=== PATIENT | male | born 1950 | race Caucasian/White ===

== ENCOUNTER 2022-09-26 07:46 | Day surgery (SDC) | payer MEDICARE, BC ==
[2022-09-24 10:58] LABS: BASOPHILS % (AUTO) 0.4 % (0-1); EOSINOPHILS # (AUTO) 0.2 X10'3 (0-0.9); EOSINOPHILS % (AUTO) 3.1 % (0-6); HEMATOCRIT 35.5 % (42.0-52.0); HEMOGLOBIN 12.1 g/dl (14.0-17.9); LYMPHOCYTES # (AUTO) 1.3 X10'3 (1.1-4.8); LYMPHOCYTES % (AUTO) 23.4 % (21-51); MEAN CORPUSCULAR HEMOGLOBIN 32.2 PG (27.0-31.0); MEAN CORPUSCULAR HGB CONC 34.1 g/dL (33.0-36.5); MEAN CORPUSCULAR VOLUME 94.4 FL (78-98); MEAN PLATELET VOLUME 7.2 FL (7.4-10.4); MONOCYTES # (AUTO) 0.4 X10'3 (0-0.9); NEUTROPHILS # (AUTO) 3.5 X10'3 (1.8-7.7); NEUTROPHILS % (AUTO) 65.1 % (42-75); PLATELET COUNT 167 X10'3 (140-440); RED BLOOD COUNT 3.76 X10'6 (4.70-6.10); RED CELL DISTRIBUTION WIDTH 17.1 % (11.5-14.5); WHITE BLOOD COUNT 5.4 X10'3 (4.5-11.0)
[2022-09-24 11:09] LABS: APTT 27 SECONDS (22-32)
[2022-09-24 11:23] LABS: CHLORIDE 100 MMOL/L (99-107)
[2022-09-24 11:39] LABS: POTASSIUM 3.4 MMOL/L (3.5-5.1); SODIUM 138 MMOL/L (135-145)
[2022-09-24 11:42] LABS: ALANINE AMINOTRANSFERASE 32 U/L (12-78); ALBUMIN 3.7 G/DL (3.4-5.0); ALKALINE PHOSPHATASE 46 IU/L (46-116); ANION GAP 8 (8-16); ASPARTATE AMINO TRANSFERASE 24 U/L (10-37); BILIRUBIN,TOTAL 0.4 MG/DL (0.1-1.0); BLOOD UREA NITROGEN 12 MG/DL (7-18); BUN/CREATININE RATIO 13.2 (5.4-32.0); CALCIUM 9.1 MG/DL (8.5-10.1); CREATININE 0.91 MG/DL (0.60-1.10); GLUCOSE 229 MG/DL (70-104); TOTAL CARBON DIOXIDE 30.4 MMOL/L (24-32); TOTAL PROTEIN 7.3 G/DL (6.4-8.2); eGFR 82 ML/MIN
[~2022-09-26] VITALS: Ht 188 cm; Wt 123.3 kg
[2022-09-26] VITALS (12 sets, daily range): BP systolic 104–159; BP diastolic 58–83
[~2022-09-26 07:46] MED LIST: ASPI-529 PO; CARV-50 PO; CETI10CA11 PO; HYDR12.522 PO; LOSA25TA96 PO; MULT-1141 PO; NOR5T PO; OMEG-5 PO; VITC500T PO
[2022-09-26] MEDS ORDERED: diphenhydrAMINE 25mg capsule PO PRN (09:00)
[2022-09-26] MEDS ORDERED: nitroGLYCERIN 0.4mg SUBLingual tab SL PRN ×2 (09:00→12:40)
[2022-09-26] MEDS ORDERED: normal saline 1,000 ML IV SCH (09:00)
[2022-09-26] MEDS ORDERED: LORazepam 0.5 MG tablet PO PRN (09:00)
[2022-09-26] MEDS ORDERED: HYDR-4069 PO (09:23)
[2022-09-26] MEDS ORDERED: GLIM1TAB6 PO (09:23)
[2022-09-26] MEDS ORDERED: METF-1203 PO (09:23)
[2022-09-26] MEDS ORDERED: CARV25TA2 PO (09:23)
[2022-09-26] MEDS ORDERED: AMLO10TA13 PO (09:23)
[2022-09-26] MEDS ORDERED: FLO0.4C (09:23)
[2022-09-26] MEDS ORDERED: HYDR25TA4 PO (09:23)
[2022-09-26] MEDS ORDERED: ATOR10TA70 PO (09:23)
[2022-09-26] MEDS ORDERED: APIX2.5T PO (09:24)
[2022-09-26] MEDS ORDERED: MAGN500C4 PO (09:28)
[2022-09-26 09:59] LABS: ALANINE AMINOTRANSFERASE 38 U/L (12-78); ALBUMIN 4.3 G/DL (3.4-5.0); ALKALINE PHOSPHATASE 63 IU/L (46-116); ANION GAP 14 (8-16); ASPARTATE AMINO TRANSFERASE 27 U/L (10-37); BILIRUBIN,TOTAL 0.5 MG/DL (0.1-1.0); BLOOD UREA NITROGEN 12 MG/DL (7-18); BUN/CREATININE RATIO 13.5 (5.4-32.0); CALCIUM 9.1 MG/DL (8.5-10.1); CHLORIDE 98 MMOL/L (99-107); CREATININE 0.89 MG/DL (0.60-1.10); GLUCOSE 191 MG/DL (70-104); POTASSIUM 3.5 MMOL/L (3.5-5.1); SODIUM 138 MMOL/L (135-145); TOTAL CARBON DIOXIDE 25.7 MMOL/L (24-32); TOTAL PROTEIN 8.7 G/DL (6.4-8.2); eGFR 85 ML/MIN
[2022-09-26] MEDS ORDERED: insulin Lispro (HumaLOG) vial - multi-dose SQ SCH (10:05)
[2022-09-26] MEDS ORDERED: LIDOcaine 1% 30ml preserv. free vial ONE (10:41)
[2022-09-26] MEDS ORDERED: iohexol 350MG/ML 100ml bottle IV ONE ×2 (10:41→11:46)
[2022-09-26] MEDS ORDERED: fentaNYL/PF 50MCG/1 ML 2ML syringe ONE (10:41)
[2022-09-26] MEDS ORDERED: midazolam 1 mg/ML 2ml injection ONE ×2 (10:41→11:29)
[2022-09-26] MEDS ORDERED: FENTANYL CITRATE/PF 50 MCG/1 ML VIAL ONE (11:41)
[2022-09-26] MEDS ORDERED: hydrALAZINE 20mg/ml inj. IV ONE (11:56)
--- NOTE | 2022-09-26 12:18 | NUR ---
Bedside report received from ANDREW Barrios. Patient's vital signs stable. NSR on aids nurse. Right groin site stable with angioseal in place. No bleeding/hematoma noted. Dressing CDI.
[2022-09-26] MEDS ORDERED: normal saline 1000ml 1,000 ML IV SCH (12:40)
[2022-09-26] MEDS ORDERED: ondansetron/PF 4mg/2ml inj IV PRN (12:40)
[2022-09-26] MEDS ORDERED: OXAZEpam 15mg capsule PO PRN (12:40)
[2022-09-26] MEDS ORDERED: HYDROcodone/acetaminophen 5mg/325mg tablet PO PRN (12:40)
[2022-09-26] MEDS ORDERED: HYDROcodone/acetaminophen 10/325mg tab PO PRN (12:40)
[2022-09-26] MEDS ORDERED: proCHLORperazine 10 MG/2 ml inj IV PRN (12:40)
--- NOTE | 2022-09-26 15:00 | NUR ---
Patient unable to void. Michele catheter 16 serbian placed. 700 mL clear yellow urine output.
--- NOTE | 2022-09-26 17:00 | NUR ---
Michele catheter discontinued. Will monitor for void.
[2022-09-26] MEDS ORDERED: insulin glargine (Lantus) pen - multi-dose SQ SCH (21:00)
== END 2022-09-26 18:00 | disposition home or self-care (01) ==
LOC: SSTAY O 07:46
PROVIDERS: ATTEND Internal Medicine Cardiovascular Disease
DX: R94.39 Abnormal result of other cardiovascular function study (principal); I25.10 Atherosclerotic heart disease of native coronary artery without angina pectoris; I10 Essential (primary) hypertension; E78.5 Hyperlipidemia, unspecified; E11.9 Type 2 diabetes mellitus without complications; Z87.891 Personal history of nicotine dependence; Z79.899 Other long term (current) drug therapy; Z98.890 Other specified postprocedural states; Z79.01 Long term (current) use of anticoagulants
CPT/HCPCS: 36415; 71046; 80053; 82948; 85025; 85610; 85730; 93005; 93458; 93567; 99152; 99153; C1751; C1760; C1769; J0360; J1644; J2250; J3010; J3490; J7030; Q0163; Q9967; A6258; J1815